=== PATIENT | female | born 1985 | race Caucasian/White ===

== ENCOUNTER 2017-05-21 05:59 | Observation (INO) | payer BC ==
[2017-05-21] VITALS (9 sets, daily range): BP systolic 98–116; BP diastolic 49–77; PULSE 61–101; TEMP 97.8–98.3
[~2017-05-21] VITALS: Ht 157.5 cm; Wt 86.4 kg
[2017-05-21] MEDS ORDERED: YAZ 28 3 MG-0.01 TAB PO (06:10)
[2017-05-21 07:07] LABS: COLLECTION METHOD CLEAN CATCH
[2017-05-21 07:19] LABS: BASO # 0.1 (0.0-0.2); BASO % 0.6 % (0.0-2.0); EOS # 0.3 (0.0-0.7); GRAN # 5.3 (1.4-6.5); GRAN % 63.6 % (42.2-75.2); HEMATOCRIT 43.3 % (37.0-47.0); HEMOGLOBIN 14.7 g/dl (12.5-16.0); LYMPH % 24.2 % (20.0-51.0); MEAN CELL VOLUME 88 fl (80.0-100.0); MEAN CORPUSCULAR HEMOGLOBIN 30 pg (27.0-31.0); MEAN CORPUSCULAR HGB CONC 34 g/dl (33.0-37.0); MEAN PLATELET VOLUME 9.2 fl (7.4-10.4); MONO # 0.6 (0.1-0.6); MONO % 7.5 % (1.7-9.3); PLATELET COUNT 286 K/mm3 (130-400); RED BLOOD COUNT 4.94 M/mm3 (4.10-5.30); WHITE BLOOD COUNT 8.3 K/mm3 (4.8-10.8)
[2017-05-21 07:21] LABS: PH 7 (5-8); SQUAMOUS EPITHELIAL 0-2 /hpf; URINE APPEARANCE Clear; URINE BACTERIA None Seen /hpf; URINE BILIRUBIN Negative (NEGATIVE); URINE BLOOD Negative (NEGATIVE); URINE COLOR Straw; URINE GLUCOSE Negative (NEGATIVE); URINE KETONE Negative (NEGATIVE); URINE LEUKOCYTE ESTERASE Negative (NEGATIVE); URINE PROTEIN(semi-quant) Negative (NEGATIVE); URINE RBC 0-2 /hpf; URINE UROBILINOGEN Negative (NEGATIVE); URINE WBC 0-2 /hpf
[2017-05-21 07:32] LABS: ADJUSTED CALCIUM 9.5 mg/dL (8.4-10.2); ALANINE AMINOTRANSFERASE 48 U/L (9-52); ALBUMIN 4.3 gm/dL (3.5-5.0); ALKALINE PHOSPHATASE 42 U/L (50-136); ANION GAP 10 mmol/L (7-16); BILIRUBIN,TOTAL 0.9 mg/dL (0.0-1.0); BLOOD UREA NITROGEN 9 mg/dL (7-17); CALCIUM 9.7 mg/dL (8.4-10.2); CARBON DIOXIDE 28 mmol/L (22-30); CHLORIDE 100 mmol/L (98-107); CREATININE, serum 0.76 mg/dL (0.52-1.25); GLUCOSE 107 mg/dL (74-106); LIPASE 100 U/L (23-300); POTASSIUM 3.9 mmol/L (3.4-5.0); SODIUM 138 mmol/L (137-145); TOTAL PROTEIN 7.4 gm/dL (6.4-8.2)
[2017-05-21 07:36] LABS: C-REACTIVE PROTEIN < 0.5 mg/dL (0.0-0.9)
[2017-05-21 09:08] LABS: CHLAMYDIA/TRACH by PCR Female NOT DETECTED; NEISSERIA GON by PCR Female NOT DETECTED
[2017-05-21] MEDS ORDERED: IBU800 M1 PO (17:29)
[2017-05-21] MEDS ORDERED: PERCOCET 325 MG1 TA2 PO (17:30)
[2017-05-21] MEDS ORDERED: NYAMYC100000 U/G TP (17:30)
== END 2017-05-21 21:00 | disposition home or self-care (01) ==
LOC: COL.ER 05:59 → OB 10:59
PROVIDERS: Emergency Medicine
DX: N83.8 Other noninflammatory disorders of ovary, fallopian tube and broad ligament (principal); N83.53 Torsion of ovary, ovarian pedicle and fallopian tube; N70.92 Oophoritis, unspecified; N83.01 Follicular cyst of right ovary; B37.2 Candidiasis of skin and nail; E66.9 Obesity, unspecified; Z68.34 Body mass index [BMI] 34.0-34.9, adult; F31.9 Bipolar disorder, unspecified; E28.2 Polycystic ovarian syndrome; Z79.3 Long term (current) use of hormonal contraceptives
CPT/HCPCS: J0690; J1170; J1885; J2405; J2550; J2704; J2710; J3010

== ENCOUNTER → 2017-11-04 | Outpatient (CLI) | payer BC ==
[~2017-11-04] MED LIST: IBU800 M1 PO; NYAMYC100000 U/G TP; PERCOCET 325 MG1 TA2 PO; YAZ 28 3 MG-0.01 TAB PO
== END ==
LOC: BHSO 09:13
DX: F31.81 Bipolar II disorder (principal)
CPT/HCPCS: G0463

== ENCOUNTER → 2024-05-18 | Outpatient (CLI) | payer BC | LOC: MC.RAD 13:46 | DX: Z12.31 Encounter for screening mammogram for malignant neoplasm of breast (principal) ==